=== PATIENT | female | born 1940 | race Caucasian/White ===

== ENCOUNTER 2019-04-03 14:44 | Emergency (ER) | payer OTHER ==
[~2019-04-03] VITALS: Ht 162.6 cm; Wt 81.6 kg
[2019-04-03 15:13] VITALS: BP 141/74
[2019-04-03] MEDS ORDERED: SODIUM CHLORIDE 0.9% 500 ML IVB ONE (15:39)
[2019-04-03] MEDS ORDERED: SODIUM CHLORIDE 0.9% 1,000 ML IV ONE (15:39)
[2019-04-03 15:52] LABS: Albumin 3.5 g/dL (3.4-5.0); BUN/Creatinine Ratio 14.2; Calcium 10.5 mg/dL (8.5-10.1); Potassium 3.6 mmol/L (3.5-5.1)
[2019-04-03 15:55] LABS: Bilirubin, Total 0.3 mg/dL (0.2-1.0); Total Protein 8.2 g/dL (6.4-8.2)
[2019-04-03 16:29] LABS: Basophils # (auto) 0 uL; Basophils % (auto) 0.4 % (0.0-2.0); Eosinophils # (auto) 0.1 uL; Hematocrit 42.3 % (36.0-46.0); Hemoglobin 13.9 g/dL (12.2-16.2); Lymphocytes # (auto) 1.8 uL; Lymphocytes % (auto) 17.4 % (10.0-50.0); Mean Corpuscular Hemoglobin 28.2 pg (28.0-32.0); Mean Corpuscular Hgb Conc. 32.9 g/dL (32.0-36.0); Mean Corpuscular Volume 85.8 fL (80.0-100.0); Monocytes # (auto) 0.9 uL; Monocytes % (auto) 8.9 % (0.0-12.0); Neutrophils # (auto) 7.5 uL; Neutrophils % (auto) 72.3 % (37.0-80.0); Platelet Count (auto) 421 10^3/uL (140-450); Red Blood Cells 4.94 10^6/uL (4.0-5.20); White Blood Cell 10.3 10^3/uL (4.4-10.8)
[2019-04-03] MEDS ORDERED: LACTULOSE 20Gm/30ML SOLN PO ONE (17:15)
== END 2019-04-03 18:09 | disposition home or self-care (01) ==
LOC: ER 14:44 → EDBD 14:44 → ER 18:09
DX: K59.8 Other specified functional intestinal disorders (principal); K59.01 Slow transit constipation; I12.9 Hypertensive chronic kidney disease with stage 1 through stage 4 chronic kidney disease, or unspecified chronic kidney disease; N18.9 Chronic kidney disease, unspecified; E78.5 Hyperlipidemia, unspecified; N28.1 Cyst of kidney, acquired; Z90.5 Acquired absence of kidney; Z88.8 Allergy status to other drugs, medicaments and biological substances
CPT/HCPCS: 36415; 74176; 80053; 83690; 83735; 84443; 84484; 85025; 93005; 99284; J7030; J7040

== ENCOUNTER → 2019-12-09 | Emergency (ER) | payer OTHER ==
[~2019-12-09] VITALS: Ht 154.9 cm; Wt 57.2 kg
[~2019-12-09] MED LIST: MORPHINE SULF INJ 2 MG/ML SYRINGE 1ML IV ONE; MORPHINE SULF INJ 2 MG/ML SYRINGE 1ML ONE; ONDANSETRON HCL 4 MG/2 ML VIAL IV ONE; ONDANSETRON HCL 4 MG/2 ML VIAL ONE; cloNIDine HCL 0.1 MG TAB PO ONE
[2019-12-09 10:53] LABS: Basophils # (auto) 0 10 ^3/uL (0-0.2); Basophils % (auto) 0.3 % (0.0-2.0); Eosinophils # (auto) 0 10 ^3/uL (0-0.8); Eosinophils % (auto) 0.3 % (0.0-7.0); Hematocrit 35.2 % (36.0-46.0); Hemoglobin 11.7 g/dL (12.2-16.2); Lymphocytes # (auto) 0.8 10 ^3/uL (0.4-5.4); Lymphocytes % (auto) 9.5 % (10.0-50.0); Mean Corpuscular Hemoglobin 28.5 pg (28.0-32.0); Mean Corpuscular Hgb Conc. 33.1 g/dL (32.0-36.0); Mean Corpuscular Volume 86.1 fL (80.0-100.0); Monocytes # (auto) 0.5 10 ^3/uL (0-1.3); Monocytes % (auto) 6.3 % (0.0-12.0); Neutrophils # (auto) 7.2 10 ^3/uL (1.6-8.6); Neutrophils % (auto) 83.6 % (37.0-80.0); Nucleated Red Blood Cells % 0.1 %; Platelet Count (auto) 299 10^3/uL (140-450); Red Blood Cells 4.09 10^6/uL (4.0-5.20); White Blood Cell 8.7 10^3/uL (4.4-10.8)
[2019-12-09 11:11] LABS: Albumin 3.2 g/dL (3.4-5.0); Amylase 52 U/L (25-115); Anion Gap 6 (5-15); Blood Urea Nitrogen 16 mg/dL (7-18); Calcium 10.8 mg/dL (8.5-10.1); Carbon Dioxide 28 mmol/L (21-32); Chloride 104 mmol/L (98-107); Glucose 109 mg/dL (74-106); Lipase 248 U/L (73-393); Magnesium 1.9 mg/dL (1.6-2.6); Potassium 3.7 mmol/L (3.5-5.1); Sodium 138 mmol/L (136-145)
[2019-12-09 11:17] LABS: Alanine Aminotransferase 31 U/L (13-56); Alkaline Phosphatase 306 U/L (45-117); Aspartate Aminotransferase 38 U/L (15-37); BUN/Creatinine Ratio 17.8; Bilirubin, Total 0.9 mg/dL (0.2-1.0); GFR African American 77 mL/min; GFR Non-African American 64 mL/min; Total Protein 7.5 g/dL (6.4-8.2)
[2019-12-09 13:07] LABS: Urine Bacteria FEW /hpf (None Seen); Urine Blood Negative /uL (Negative); Urine Mucus FEW (None Seen); Urine Specific Gravity 1.018 (1.001-1.035); Urine WBC 21 /hpf (0 - 5)
[2019-12-09 17:44] VITALS: BP 174/76
== END | disposition home or self-care (01) ==
LOC: ER 09:52
DX: K86.89 Other specified diseases of pancreas (principal); E44.1 Mild protein-calorie malnutrition; E86.0 Dehydration; E78.5 Hyperlipidemia, unspecified; I10 Essential (primary) hypertension; Z88.5 Allergy status to narcotic agent; Z88.8 Allergy status to other drugs, medicaments and biological substances
CPT/HCPCS: 36415; 71045; 74176; 80053; 81001; 82150; 83690; 83735; 84484; 85025; 93005; 96374; 96375; 96376; 99285; J2270; J2405